=== PATIENT | male | born 1985 | race Caucasian/White ===

== ENCOUNTER 2020-09-27 14:00 | Emergency (ER) | payer MEDICARE, OTHER ==
[~2020-09-27 14:00] MED LIST: ASPIR 8181 MG PO; EFFEXOR XR150 MG PO; IBUPROFEN600 MG PO; K-DUR TAB 20 M20 MEQ PO; LOPRESSOR50 MG PO; NORFLEX 100 MG100 MG PO; Voltaren Gel 1 % TOP; ZOFRAN4 MG PO; lithium
[2020-09-27 14:51] LABS: HEMOGLOBIN 14.1 gm/dl (14.0-17.5); RED BLOOD COUNT 4.64 M/UL (4.20-5.50); WHITE BLOOD COUNT 5.9 K/UL (4.5-11.0)
[2020-09-27 15:16] LABS: BUN/CREATININE RATIO 16 (0-10)
[2020-09-27] MEDS ORDERED: POTASSIUM CHLO10 MEQ PO (16:27)
[2021-01-21] MEDS ORDERED: BUSPIRONE HCL30 MG PO (03:34)
[2021-01-21] MEDS ORDERED: BACLOFEN20 MG PO (03:38)
== END 2020-09-27 16:45 | disposition home or self-care (01) ==
LOC: ER1 14:00
DX: R31.9 Hematuria, unspecified (principal); E87.6 Hypokalemia; K76.0 Fatty (change of) liver, not elsewhere classified; Z87.442 Personal history of urinary calculi; Z86.19 Personal history of other infectious and parasitic diseases
CPT/HCPCS: 80053; 81001; 83690; 85025; 85610; 85730; 99284

== ENCOUNTER → 2020-10-19 | Outpatient (CLI) | payer MEDICARE, OTHER ==
[~2020-10-19] MED LIST changes: +ASPIRIN CHEWABL81 MG PO; +BACLOFEN20 MG PO; +BACTRIM DS TAB1 EACH PO; +BIOFLEX TABLET1 EACH PO; +BUSPIRONE HCL30 MG PO; +HYDROXYZINE HCL25 MG PO; +LAMOTRIGINE100 MG PO; +METOPROLOL SUCC50 MG PO; +NITROSTAT0.4 MG SL; +POTASSIUM CHLO10 MEQ PO; +TYLENOL325 MG PO
== END ==
LOC: KOH-I 16:06
DX: M21.611 Bunion of right foot (principal); L03.115 Cellulitis of right lower limb; M20.11 Hallux valgus (acquired), right foot; M19.071 Primary osteoarthritis, right ankle and foot
CPT/HCPCS: 73630

== ENCOUNTER 2020-12-13 14:38 | Emergency (ER) | payer MEDICARE, OTHER ==
[~2020-12-13 14:38] MED LIST changes: -ASPIRIN CHEWABL81 MG PO; -BACLOFEN20 MG PO; -BACTRIM DS TAB1 EACH PO; -BIOFLEX TABLET1 EACH PO; -BUSPIRONE HCL30 MG PO; -HYDROXYZINE HCL25 MG PO; -LAMOTRIGINE100 MG PO; -METOPROLOL SUCC50 MG PO; -NITROSTAT0.4 MG SL; -TYLENOL325 MG PO
[2021-01-21] MEDS ORDERED: BUSPIRONE HCL30 MG PO (03:34)
[2021-01-21] MEDS ORDERED: BACLOFEN20 MG PO (03:38)
== END 2020-12-13 15:45 | disposition home or self-care (01) ==
LOC: ER1 14:38
DX: S39.012A Strain of muscle, fascia and tendon of lower back, initial encounter (principal); R03.0 Elevated blood-pressure reading, without diagnosis of hypertension; F17.220 Nicotine dependence, chewing tobacco, uncomplicated; Z88.8 Allergy status to other drugs, medicaments and biological substances; X50.0XXA Overexertion from strenuous movement or load, initial encounter
CPT/HCPCS: 72110; 99283

== ENCOUNTER 2021-01-21 09:02 | Observation (INO) | payer MEDICARE, OTHER ==
[~2021-01-21] VITALS: Ht 175.3 cm; Wt 82.6 kg
[~2021-01-21 09:02] MED LIST changes: +BACLOFEN20 MG PO; +BUSPIRONE HCL30 MG PO
[2021-01-21 10:51] LABS: HEMOGLOBIN 13.6 gm/dl (14.0-17.5); RED BLOOD COUNT 4.32 M/UL (4.20-5.50); WHITE BLOOD COUNT 12.2 K/UL (4.5-11.0)
[2021-01-21 11:22] LABS: BUN/CREATININE RATIO 5 (0-10)
[2021-01-21] MEDS ORDERED: HYDROXYZINE HCL25 MG PO (13:41)
[2021-01-21] MEDS ORDERED: LAMOTRIGINE100 MG PO (13:43)
[2021-01-21] MEDS ORDERED: METOPROLOL SUCC50 MG PO (13:44)
[2021-01-21] MEDS ORDERED: TYLENOL325 MG PO (15:57)
[2021-01-21] MEDS ORDERED: BIOFLEX TABLET1 EACH PO (15:58)
[2021-01-22 06:41] LABS: HEMOGLOBIN 14.2 gm/dl (14.0-17.5); RED BLOOD COUNT 4.54 M/UL (4.20-5.50)
[2021-01-22 07:30] LABS: BUN/CREATININE RATIO 9 (0-10)
[2021-01-23 04:26] LABS: BUN/CREATININE RATIO 13 (0-10)
[2021-01-23] MEDS ORDERED: BACTRIM DS TAB1 EACH PO (11:54)
== END 2021-01-23 14:57 | disposition home or self-care (01) ==
LOC: ER1 09:02 → MED SURG 4 12:51 → CDU 12:51 → MED SURG 4 19:05
PROVIDERS: Physician Assistant; Physician Assistant Medical; ADMIT Internal Medicine
DX: L97.519 Non-pressure chronic ulcer of other part of right foot with unspecified severity (principal); L03.115 Cellulitis of right lower limb; I10 Essential (primary) hypertension; F11.11 Opioid abuse, in remission; F31.9 Bipolar disorder, unspecified; G89.29 Other chronic pain; Z79.899 Other long term (current) drug therapy; Z20.822 Contact with and (suspected) exposure to COVID-19
CPT/HCPCS: 36415; 73630; 73718; 80048; 80053; 80202; 83605; 83735; 85025; 85027; 85652; 86140; 87040; 87070; 87077; 87186; 87205; 96365; 96366; 96375; 96376; 99284; G0378; J2543; J3370; J7030; J7070; U0002

== ENCOUNTER 2021-02-11 08:14 | Emergency (ER) | payer MEDICARE, OTHER ==
[~2021-02-11 08:14] MED LIST changes: +BACTRIM DS TAB1 EACH PO; +BIOFLEX TABLET1 EACH PO; +HYDROXYZINE HCL25 MG PO; +LAMOTRIGINE100 MG PO; +METOPROLOL SUCC50 MG PO; +TYLENOL325 MG PO
[2021-02-11 08:59] LABS: RED BLOOD COUNT 5.09 M/UL (4.20-5.50); WHITE BLOOD COUNT 8.3 K/UL (4.5-11.0)
[2021-02-11 09:27] LABS: BUN/CREATININE RATIO 9 (0-10)
[2021-02-11] MEDS ORDERED: NITROSTAT0.4 MG SL (12:42)
[2021-02-11] MEDS ORDERED: ASPIRIN CHEWABL81 MG PO (12:42)
== END 2021-02-11 13:55 | disposition home or self-care (01) ==
LOC: ER1 08:14
PROVIDERS: Emergency Medicine
DX: R07.89 Other chest pain (principal); I10 Essential (primary) hypertension
CPT/HCPCS: 71045; 80053; 82550; 82553; 83874; 84484; 85025; 85379; 93005; 99285

== ENCOUNTER 2021-03-09 12:14 | Emergency (ER) | payer MEDICARE, OTHER ==
[~2021-03-09 12:14] MED LIST changes: +ASPIRIN CHEWABL81 MG PO; +NITROSTAT0.4 MG SL
== END 2021-03-09 13:12 | disposition home or self-care (01) ==
LOC: ER1 12:14
DX: K42.9 Umbilical hernia without obstruction or gangrene (principal); I10 Essential (primary) hypertension; F17.210 Nicotine dependence, cigarettes, uncomplicated; Z79.899 Other long term (current) drug therapy
CPT/HCPCS: 99283

== ENCOUNTER 2021-03-16 13:18 | Emergency (ER) | payer MEDICARE, OTHER | END 2021-03-16 15:50 | disposition left against medical advice (07) | LOC: ER1 13:18 | DX: Z53.21 Procedure and treatment not carried out due to patient leaving prior to being seen by health care provider (principal) | CPT/HCPCS: 99285 ==

== ENCOUNTER 2021-05-23 17:50 | Emergency (ER) | payer MEDICARE, OTHER ==
[2021-05-23 18:15] LABS: HEMOGLOBIN 13.2 gm/dl (14.0-17.5); RED BLOOD COUNT 4.42 M/UL (4.20-5.50); WHITE BLOOD COUNT 9.1 K/UL (4.5-11.0)
[2021-05-23 18:42] LABS: BUN/CREATININE RATIO 13 (0-10)
== END 2021-05-23 20:21 | disposition home or self-care (01) ==
LOC: ER1 17:50
PROVIDERS: Physician Assistant
DX: R06.02 Shortness of breath (principal); R07.9 Chest pain, unspecified; K46.9 Unspecified abdominal hernia without obstruction or gangrene; I10 Essential (primary) hypertension; Z20.822 Contact with and (suspected) exposure to COVID-19; Z88.8 Allergy status to other drugs, medicaments and biological substances; Z91.040 Latex allergy status; F17.210 Nicotine dependence, cigarettes, uncomplicated
CPT/HCPCS: 71045; 80053; 82550; 82553; 83874; 84484; 85025; 93005; 99285; U0002

== ENCOUNTER 2021-05-31 11:45 | Emergency (ER) | payer MEDICARE, OTHER | END 2021-05-31 12:30 | disposition E | LOC: ER1 11:45 | DX: R07.89 Other chest pain (principal); I10 Essential (primary) hypertension; F17.210 Nicotine dependence, cigarettes, uncomplicated | CPT/HCPCS: 71045; 93005; 99285 ==

== ENCOUNTER 2021-11-23 18:58 | Inpatient (IN) | payer MEDICARE, OTHER ==
[~2021-11-23] VITALS: Ht 175.3 cm; Wt 88.5 kg
[2021-11-23 20:49] LABS: HEMOGLOBIN 12.9 gm/dl (14.0-17.5); RED BLOOD COUNT 4.35 M/UL (4.20-5.50); WHITE BLOOD COUNT 10.9 K/UL (4.5-11.0)
[2021-11-23 21:15] LABS: BUN/CREATININE RATIO 13 (0-10)
[2021-11-24 07:42] LABS: BUN/CREATININE RATIO 11 (0-10)
[2021-11-24 08:16] LABS: HEMOGLOBIN 13.8 gm/dl (14.0-17.5); RED BLOOD COUNT 4.76 M/UL (4.20-5.50); WHITE BLOOD COUNT 9.8 K/UL (4.5-11.0)
[2021-11-24] MEDS ORDERED: SILVADENE CREAM20 GM TOP (10:55)
[2021-11-24] MEDS ORDERED: PROPRANOLOL HCL10 MG PO (10:56)
[2021-11-24] MEDS ORDERED: RISPERIDONE2 MG PO (10:57)
[2021-11-24] MEDS ORDERED: QUETIAPINE FUM300 MG PO (10:58)
[2021-11-25 04:42] LABS: HEMOGLOBIN 13.7 gm/dl (14.0-17.5); RED BLOOD COUNT 4.73 M/UL (4.20-5.50); WHITE BLOOD COUNT 6.6 K/UL (4.5-11.0)
[2021-11-25 05:11] LABS: BUN/CREATININE RATIO 13 (0-10)
[2021-11-26 04:18] LABS: HEMOGLOBIN 13.5 gm/dl (14.0-17.5); RED BLOOD COUNT 4.6 M/UL (4.20-5.50); WHITE BLOOD COUNT 6.9 K/UL (4.5-11.0)
[2021-11-26 04:20] LABS: BUN/CREATININE RATIO 10 (0-10)
[2021-11-27 03:07] LABS: HEMOGLOBIN 13.1 gm/dl (14.0-17.5); RED BLOOD COUNT 4.51 M/UL (4.20-5.50); WHITE BLOOD COUNT 5.7 K/UL (4.5-11.0)
[2021-11-27 03:54] LABS: BUN/CREATININE RATIO 12 (0-10)
[2021-11-27] MEDS ORDERED: LEVOFLOXACIN500 MG PO (10:12)
[2021-11-27] MEDS ORDERED: ZYVOX600 MG PO (10:12)
== END 2021-11-27 12:47 | disposition home or self-care (01) | DRG 300 ==
LOC: ER1 18:58 → M/S 22:39 → CDU 22:39 → M/S 11-24 00:25
PROVIDERS: Emergency Medicine; Internal Medicine; ADMIT Internal Medicine
DX: E11.52 Type 2 diabetes mellitus with diabetic peripheral angiopathy with gangrene (principal); I96 Gangrene, not elsewhere classified; L03.116 Cellulitis of left lower limb; M86.172 Other acute osteomyelitis, left ankle and foot; F11.20 Opioid dependence, uncomplicated; E11.621 Type 2 diabetes mellitus with foot ulcer; F41.9 Anxiety disorder, unspecified; Z20.822 Contact with and (suspected) exposure to COVID-19; F31.9 Bipolar disorder, unspecified; G89.29 Other chronic pain; L97.529 Non-pressure chronic ulcer of other part of left foot with unspecified severity; S92.902A Unspecified fracture of left foot, initial encounter for closed fracture; B95.62 Methicillin resistant Staphylococcus aureus infection as the cause of diseases classified elsewhere; E11.69 Type 2 diabetes mellitus with other specified complication; F17.200 Nicotine dependence, unspecified, uncomplicated; Z82.49 Family history of ischemic heart disease and other diseases of the circulatory system; Z98.890 Other specified postprocedural states; Z79.899 Other long term (current) drug therapy; Z79.82 Long term (current) use of aspirin
CPT/HCPCS: 36415; 73630; 73718; 80048; 80053; 80202; 82550; 82553; 82962; 83036; 83735; 83880; 84100; 84484; 85025; 85027; 85652; 86140; 87040; 87070; 87077; 87186; 87205; 93926; 93971; 99284; G0378; J1650; J2270; J2543; J3370; J7070; U0002

== ENCOUNTER 2021-11-29 16:17 | Emergency (ER) | payer MEDICARE, OTHER ==
[~2021-11-29 16:17] MED LIST changes: +LEVOFLOXACIN500 MG PO; +PROPRANOLOL HCL10 MG PO; +QUETIAPINE FUM300 MG PO; +RISPERIDONE2 MG PO; +SILVADENE CREAM20 GM TOP; +ZYVOX600 MG PO
== END 2021-11-29 21:15 | disposition left against medical advice (07) ==
LOC: ER1 16:17
DX: Z53.21 Procedure and treatment not carried out due to patient leaving prior to being seen by health care provider (principal)

== ENCOUNTER 2022-01-08 10:37 | Emergency (ER) | payer MEDICARE, OTHER ==
[2022-01-08 12:08] LABS: HEMOGLOBIN 13.2 gm/dl (14.0-17.5); RED BLOOD COUNT 4.39 M/UL (4.20-5.50); WHITE BLOOD COUNT 11.2 K/UL (4.5-11.0)
[2022-01-08 12:38] LABS: BUN/CREATININE RATIO 31 (0-10)
[2022-01-08] MEDS ORDERED: CLEOCIN HCL150 MG PO (14:53)
== END 2022-01-08 15:20 | disposition home or self-care (01) ==
LOC: ER1 10:37
PROVIDERS: Physician Assistant
DX: M86.9 Osteomyelitis, unspecified (principal); F17.210 Nicotine dependence, cigarettes, uncomplicated; Z88.8 Allergy status to other drugs, medicaments and biological substances
CPT/HCPCS: 73630; 80053; 83605; 85025; 85652; 86140; 99283

== ENCOUNTER 2022-01-20 16:39 | Emergency (ER) | payer MEDICARE, OTHER ==
[~2022-01-20 16:39] MED LIST changes: +CLEOCIN HCL150 MG PO
[2022-01-20 17:40] LABS: RED BLOOD COUNT 4.32 M/UL (4.20-5.50); WHITE BLOOD COUNT 11.5 K/UL (4.5-11.0)
[2022-01-20 18:03] LABS: BUN/CREATININE RATIO 13 (0-10)
== END 2022-01-21 12:55 | disposition other institution (70) ==
LOC: ER1 16:39
PROVIDERS: Emergency Medicine
DX: R45.851 Suicidal ideations (principal); Z20.822 Contact with and (suspected) exposure to COVID-19; F17.200 Nicotine dependence, unspecified, uncomplicated
CPT/HCPCS: 80053; 80307; 81001; 85025; 99285; G0480; Q0177; U0002

== ENCOUNTER 2022-03-14 16:12 | Emergency (ER) | payer MEDICARE, OTHER ==
[2022-03-15] MEDS ORDERED: CEPHALEXIN500 M1 PO (19:56)
== END 2022-03-14 16:25 | disposition left against medical advice (07) ==
LOC: ER1 16:12
DX: Z53.21 Procedure and treatment not carried out due to patient leaving prior to being seen by health care provider (principal)

== ENCOUNTER 2022-03-15 14:24 | Emergency (ER) | payer MEDICARE, OTHER ==
[2022-03-15] MEDS ORDERED: CEPHALEXIN500 M1 PO (19:56)
== END 2022-03-15 15:20 | disposition left against medical advice (07) ==
LOC: ER1 14:24
DX: Z53.21 Procedure and treatment not carried out due to patient leaving prior to being seen by health care provider (principal)

== ENCOUNTER 2022-03-15 18:04 | Emergency (ER) | payer MEDICARE, OTHER ==
[2022-03-15] MEDS ORDERED: CEPHALEXIN500 M1 PO (19:56)
[2022-03-15 21:52] LABS: RED BLOOD COUNT 4.59 M/UL (4.20-5.50); WHITE BLOOD COUNT 19.4 K/UL (4.5-11.0)
[2022-03-15 22:02] LABS: BUN/CREATININE RATIO 17 (0-10)
== END 2022-03-16 06:24 | disposition short-term general hospital (02) ==
LOC: ER1 18:04
PROVIDERS: Emergency Medicine
DX: S91.301A Unspecified open wound, right foot, initial encounter (principal); S91.302A Unspecified open wound, left foot, initial encounter; Z20.822 Contact with and (suspected) exposure to COVID-19; X58.XXXA Exposure to other specified factors, initial encounter
CPT/HCPCS: 80053; 80307; 81001; 85025; 90471; 90715; 99284; G0480; U0002